=== PATIENT | female | born 1985 | race African-American/Black ===

== ENCOUNTER 2016-07-25 23:05 | Emergency (ER) | payer OTHER ==
[2016-07-25 23:28] LABS: MANUAL DIFF NEEDED? NO
[2016-07-25 23:32] LABS: BASO% 0.9 % (0.0-0.8); EOS# 0.07 X1000 (0.0-0.7); HEMATOCRIT 40.8 % (37.0-47.0); HEMOGLOBIN 13.8 g/dL (12.0-16.0); LYMPH# 2.53 X1000 (1.2-3.4); LYMPH% 37.1 % (20.5-51.1); MCHC 33.8 g/dL (33-37); MCV 88.7 FL (81-99); MONO# 0.45 X1000 (0.11-0.59); MONO% 6.6 % (1.7-9.3); MPV 11.1 FL (7.4-10.4); NEUT% 54.4 % (42.2-75.2); PLT 285 X1000 (130-400)
[2016-07-25] MEDS ORDERED: ATIVAN IM ONE (23:33)
[2016-07-25] MEDS ORDERED: GEODON IM ONE (23:33)
[2016-07-25] MEDS ORDERED: STERILE WATER INJ. INJ ONE (23:33)
[2016-07-25] MEDS ORDERED: ATIVAN ONE (23:35)
[2016-07-25] MEDS ORDERED: GEODON ONE (23:35)
[2016-07-25 23:49] LABS: URINE CULTURE NEEDED? NO; URINE MICRO REVIEW NEEDED? NO; URINE SOURCE CLEAN CATCH
[2016-07-26] LABS: AGAP 17; ALBUMIN 4.6 g/dL (3.5-5.0); ALKALINE PHOSPHATASE 92 U/L (32-104); BUN 9 mg/dL (8-22); CALCIUM 9.7 mg/dL (8.8-10.2); CHLORIDE 101 mmol/L (98-107); COSMO 278; GOT 18 U/L (10-30); GPT 13 U/L (10-36); SODIUM 140 mmol/L (136-145); TCO2 22 mmol/L (25-35); TOTAL BILIRUBIN 0.16 mg/dL (0.20-1.00); TOTAL PROTEIN 8.3 g/dL (6.3-8.3)
[2016-07-26 00:02] LABS: UR AMPHETAMINES QUAL NONE DETECTED (NONE DETECT); UR BARBITUATES QUAL NONE DETECTED (NONE DETECT); UR BENZODIAZEPIN QUAL NONE DETECTED (NONE DETECT); UR CANNABINOIDS QUAL NONE DETECTED (NONE DETECT); UR COCAINE QUAL NONE DETECTED (NONE DETECT); UR METHADONE QUAL NONE DETECTED (NONE DETECT); UR OPIATES QUAL NONE DETECTED (NONE DETECT); UR OXYCODONE QUAL NONE DETECTED (NONE DETECT); UR PCP QUAL NONE DETECTED (NONE DETECT)
[2016-07-26 00:14] LABS: FREE T4 1.19 ng/dL (0.93-1.70)
[2016-07-26 00:19] LABS: BILIRUBIN URINE NEGATIVE (NEGATIVE); BLOOD URINE NEGATIVE (NEGATIVE); COLOR YELLOW; GLUCOSE URINE NEGATIVE (NEGATIVE); LEUKOCYTES URINE NEGATIVE (NEGATIVE); NITRITE URINE NEGATIVE (NEGATIVE); PROTEIN URINE NEGATIVE (NEGATIVE); SP GRAVITY URINE 1.014; TURBIDITY URINE CLEAR (CLEAR); UR EPITHELIAL CELLS <10 /HPF (<10); URINE BACTERIA NEGATIVE /HPF; URINE RBC <10 /HPF (<10); URINE WBC <10 /HPF (<10); UROBILINOGEN URINE NORMAL (NORMAL)
--- NOTE | 2016-07-26 00:27 | ED EKG INTERP ---
EKG Interpretation - EKG Time of EKG reading by physician:: 00:14 EKG Read and Signed by:: Kavin Jackson EKG Interpretation (*Must complete 3 of following elements*): Abnormal (Septal infarct, age undetermined) Rate: 126 Rhythm: Sinus tachycardia Attestation - Scribe Verification/Attestation Scribe:: Wale Reyna Acting as Scribe for:: Kavin Jackson Scribcharmaine documention review:: This chart was documented by a scribe and accurately reflects the service the provider performed and the decisions made by the provider.
--- NOTE | 2016-07-26 07:37 | EKG Report ---
Test Performed on : 07/26/2016 00:14:43 AM Test Reason : psych Blood Pressure : / mmHG Vent. Rate : 126 BPM Atrial Rate : 126 BPM P-R Int : 158 ms QRS Dur : 088 ms QT Int : 320 ms P-R-T Axes : 060 042 022 degrees QTc Int : 463 ms Sinus tachycardia. Septal infarct , age undetermined Abnormal ECG When compared with ECG of 04-MAY-2012 22:29, T wave inversion now evident in Inferior leads Unconfirmed Result
[2016-07-26] MEDS ORDERED: TYLENOL PO ONE (12:14)
--- NOTE | 2016-07-26 17:56 | PROVIDER DOCUMENTATION ---
HPI-Psychological Disorder <Earnest Hernandez I - Last Filed: 07/26/16 17:53> - General Source: patient - History of Present Illness-Psych Onset/Duration: reports: just prior to arrival Timing: reports: still present Severity: reports: moderate Psychiatric Complaints: reports: altered mental status, anxiety, confused, hallucinating, impaired concentration, irritability. denies: depressed, frustrated, homicidal thoughts, suicidal ideation Substance Use: reports: alcohol, marijuana Patient arrived by:: private car - Suicidal Ideation Suicide Risk Assessment: drug or ETOH abuse, rational thought loss ( hallucinations). negative: organized plan, chronic illness, schizophrenia, bi- polar <Wale Reyna - Last Filed: 07/26/16 18:04> - General Chief Complaint: Psych Stated Complaint: SI Time Seen by Provider: 07/25/16 23:32 Allergies/Adverse Reactions: Patient Allergies Allergy/AdvReac Type Severity Reaction Status Date / Time No Known Allergies Allergy Verified 07/25/16 23:20 Home Medications: Home Medication List Medication Instructions Recorded Confirmed Last Taken Type No Home Medications 07/25/16 07/25/16 Unknown History - History of Present Illness-Psych Nature of Presenting Problem: Pt is a 31 yof who presents to ER with CC of AMS. Pt reports that she smoked an unspecified amount of marijuana and drank an unspecified quantity/type of alcohol and is now having auditory hallucinations. On exam, pt was anxious and mildly obtunded, but still cooperative. (Wale Reyna) Review of Systems - Adult - REVIEW OF SYSTEMS - ADULT Constitutional: denies: chills, fever, fatique, night sweats Eyes: reports: no symptoms reported Ears, Nose, Mouth & Throat: reports: no symptoms reported Cardiovascular: reports: no symptoms reported Respiratory: denies: chronic cough, cough, dyspnea on exertion, excessive sputum production, hemoptysis, pleurisy, shortness of breath, wheezing Gastrointestinal: reports: no symptoms reported Genitourinary: reports: no symptoms reported Musculoskeletal: reports: no symptoms reported Integumentary: reports: no symptoms reported Neurological: denies: ataxia, dizziness/vertigo, headache/migraines, loss of balance, numbness, paresthesia, seizure, slurred speech, syncope, tremors Psychiatric: reports: anxiety, alcohol/drug dependence, emotional problems. denies: anti-depressant use, depression, insomnia, panic attacks, suicidal thoughts Endocrine: reports: no symptoms reported Hematologic/Lymphatic: reports: no symptoms reported Allergic/Immunologic: reports: no symptoms reported All Other Systems: Reviewed and Negative <Wale Reyna - Last Filed: 07/26/16 18:04> Past History - Adult - PAST MEDICAL HISTORY-ADULT Major Childhood Illnesses: reports: denies history Cardiovascular: reports: denies history Respiratory: reports: denies history Gastrointestinal: reports: denies history Obstetrical/Gynecological: reports: denies history Genitourinary: reports: denies history Musculoskeletal: reports: denies history Neurological: reports: denies history Endocrine/Immune: reports: denies history Other Conditions: reports: denies history - PRIOR SURGERIES/PROCEDURES Surgical/Procedure History: reports: BTL - IMMUNIZATION STATUS Childhood Immunizations: See Nurse Assessment Flu Vaccine: See Nurse Assessment - FAMILY HISTORY Family History: reviewed, not pertinent <Earnest Hernandez I - Last Filed: 07/26/16 17:53> - PAST MEDICAL HISTORY-ADULT Review of Records: reports: Nursing Assessment Review, Medications Reviewed - IMMUNIZATION STATUS Childhood Immunizations: See Nurse Assessment Flu Vaccine: See Nurse Assessment <ReynaWale - Last Filed: 07/26/16 18:04> Physical Exam-Psych Focus - Physical Exam-Psych Initial Vital Signs Reviewed: Yes Appearance: appropriate appearance, appropriate insight, neat, alert, anxious, disheveled, impaired insight, moderate distress. negative: no apparent distress , no memory impairment, denies illness, combative, impaired recent memory, impaired remote memory, lethargic, mild distress, severe distress, slow to respond Neurological: alert, safety engineer pressure vessels II-XII nml as tested, oriented x 3, responds to pain, anxious. negative: normal mood/affect, calm, agitated, depressed affect, disoriented x 3, flat Behavior/Eye Contact/Speech: cooperative, good eye contact, increased rate of speech. negative: normal speech, avoids eye contact, refused to answer, threatening eye contact, decreased rate of speech, belligerent, compulsive, uncooperative Thoughts/Hallucinations: auditory hallucinations, flight of ideas. negative: normal thought pattern, no apparent hallucination, incoherent, paranoid, phobic , tactile hallucinations, visual hallucinations HENMT: normocephalic/atraumatic, moist mucous membranes, normal ENT inspection. negative: hearing deficit Neck: non-tender, full range of motion, supple. negative: limited range of motion, lymphadenopathy Respiratory: chest non-tender, lungs clear, normal breath sounds. negative: respiratory distress, decreased breath sounds, accessory muscle use, wheezing Cardiovascular: normal peripheral pulses, regular rate, rhythm. negative: bradycardia, tachycardia, extra beats, irregularly irregular Integumentary: normal color, normal turgor, warm/dry. negative: abrasion(s), diaphoresis, ecchymosis, erythema, laceration(s), swelling, tenderness, warm <Wale Reyna - Last Filed: 07/26/16 18:04> Progress <Earnest Hernandez I - Last Filed: 07/26/16 17:53> <Wale Reyna - Last Filed: 07/26/16 18:04> - PLAN OF CARE/RESULTS Progress/Plan/Lab Results: Vital Signs - 24 hr 07/25/16 07/26/16 07/26/16 23:17 07:07 16:50 Temperature 97.5 F L 98.6 F 98.6 F Pulse Rate 105 H 100 H 76 Respiratory 22 14 19 Rate Blood Pressure 139/97 115/67 131/82 O2 Sat by Pulse 97 100 100 Oximetry Orders Category Date Time Status Regular Diet Diet 07/26/16 07:48 Completed Regular Diet Diet 07/26/16 14:35 Active ACETAMINOPHEN [TDM] Stat Lab 07/25/16 23:15 Completed ALCOHOL BLOOD Stat Lab 07/25/16 23:15 Completed ALCOHOL BLOOD Stat Lab 07/26/16 04:15 Completed CBC WITH ELECTRONIC DIFF [HEME] Stat Lab 07/25/16 23:15 Completed COMPREHENSIVE METABOLIC PANEL [CHEM] Stat Lab 07/25/16 23:15 Completed ETOH [ALCOHOL BLOOD] Stat Lab 07/26/16 13:35 Completed FREE T4 Stat Lab 07/25/16 23:15 Completed TEST-URINE [PREG] Stat Lab 07/25/16 23:37 Completed SALICYLATES [TDM] Stat Lab 07/25/16 23:15 Completed TSH Stat Lab 07/25/16 23:15 Completed URINALYSIS W/POSS RFLX CULT [URINALYSIS] Stat Lab 07/25/16 23:37 Completed URINE DRUG SCREEN Stat Lab 07/25/16 23:37 Completed VITAMIN B12 Stat Lab 07/25/16 23:15 Completed Acetaminophen [Tylenol] Med 07/26/16 12:14 Discontinued 1,000 mg PO NOW ONE Lorazepam [Ativan] Med 07/25/16 23:35 Discontinued 2 mg .ROUTE .STK-MED ONE Lorazepam [Ativan] Med 07/25/16 23:33 Discontinued 2 mg IM NOW ONE Water, Sterile Inj [Sterile Water Inj] Med 07/25/16 23:33 Discontinued 1.2 ml INJ NOW ONE Ziprasidone [Geodon] Med 07/25/16 23:35 Discontinued 20 mg .ROUTE .STK-MED ONE Ziprasidone [Geodon] Med 07/25/16 23:33 Discontinued 20 mg IM NOW ONE EKG [EKG] Stat Ther 07/25/16 23:51 Draft Laboratory Tests 07/25/16 07/25/16 07/25/16 23:15 23:15 23:15 WBC RBC Hgb Hct MCV MCH MCHC RDW Std Deviation Plt Count MPV Immature Gran % (Auto) Neut % (Auto) Lymph % (Auto) [place] % (Auto) Eos % (Auto) Baso % (Auto) Immature Gran # (Auto) Neut # (Auto) Lymph # (Auto) [place] # (Auto) Eos # (Auto) Baso # (Auto) Sodium 140 Potassium 4.0 Chloride 101 Carbon Dioxide 22 L Anion Gap 17 BUN 9 Creatinine 0.8 Estimated GFR/1.73 m2 > 60 BUN/Creatinine Ratio 11 Glucose 99 Calculated Osmolality 278 Calcium 9.7 Total Bilirubin 0.16 L AST 18 ALT 13 Alkaline Phosphatase 92 Total Protein 8.3 Albumin 4.6 Globulin 3.7 Albumin/Globulin Ratio 1.2 Vitamin B12 558 TSH 1.91 Free T4 1.19 Urine Source Urine Color Urine Turbidity Urine pH Ur Specific [place] Urine Protein Ur Glucose (Stick) Ur Ketones (Stick) Urine Blood Urine Nitrite Urine Bilirubin Urobilinogen Dipstick Urine Leukocytes Urine WBC (Auto) Urine RBC (Auto) U Epithel Cells (Auto) Urine Bacteria (Auto) Urine Test Salicylates Urine Opiates Screen Ur Oxycodone Screen Ur Methadone, Qual Acetaminophen Ur Barbiturates Screen Ur Phencyclidine Scrn Ur Amphetamines Screen U Benzodiazepines Scrn Urine Cocaine Screen U Cannabinoids Screen Plasma/Serum Ethyl Alc 180 H 07/25/16 07/25/16 07/25/16 23:15 23:15 23:15 WBC 6.82 RBC 4.60 Hgb 13.8 Hct 40.8 MCV 88.7 MCH 30.0 MCHC 33.8 RDW Std Deviation 12.9 Plt Count 285 MPV 11.1 H Immature Gran % (Auto) 0.0 Neut % (Auto) 54.4 Lymph % (Auto) 37.1 [place] % (Auto) 6.6 Eos % (Auto) 1.0 Baso % (Auto) 0.9 H Immature Gran # (Auto) 0.00 Neut # (Auto) 3.71 Lymph # (Auto) 2.53 [place] # (Auto) 0.45 Eos # (Auto) 0.07 Baso # (Auto) 0.06 Sodium Potassium Chloride Carbon Dioxide Anion Gap BUN Creatinine Estimated GFR/1.73 m2 BUN/Creatinine Ratio Glucose Calculated Osmolality Calcium Total Bilirubin AST ALT Alkaline Phosphatase Total Protein Albumin Globulin Albumin/Globulin Ratio Vitamin B12 TSH Free T4 Urine Source Urine Color Urine Turbidity Urine pH Ur Specific [place] Urine Protein Ur Glucose (Stick) Ur Ketones (Stick) Urine Blood Urine Nitrite Urine Bilirubin Urobilinogen Dipstick Urine Leukocytes Urine WBC (Auto) Urine RBC (Auto) U Epithel Cells (Auto) Urine Bacteria (Auto) Urine Test Salicylates < 3.00 L Urine Opiates Screen Ur Oxycodone Screen Ur Methadone, Qual Acetaminophen < 1.2 L Ur Barbiturates Screen Ur Phencyclidine Scrn Ur Amphetamines Screen U Benzodiazepines Scrn Urine Cocaine Screen U Cannabinoids Screen Plasma/Serum Ethyl Alc 07/25/16 07/25/16 07/25/16 23:37 23:37 23:37 WBC RBC Hgb Hct MCV MCH MCHC RDW Std Deviation Plt Count MPV Immature Gran % (Auto) Neut % (Auto) Lymph % (Auto) [place] % (Auto) Eos % (Auto) Baso % (Auto) Immature Gran # (Auto) Neut # (Auto) Lymph # (Auto) [place] # (Auto) Eos # (Auto) Baso # (Auto) Sodium Potassium Chloride Carbon Dioxide Anion Gap BUN Creatinine Estimated GFR/1.73 m2 BUN/Creatinine Ratio Glucose Calculated Osmolality Calcium Total Bilirubin AST ALT Alkaline Phosphatase Total Protein Albumin Globulin Albumin/Globulin Ratio Vitamin B12 TSH Free T4 Urine Source CLEAN CATCH Urine Color YELLOW Urine Turbidity CLEAR Urine pH 6.0 Ur Specific [place] 1.014 Urine Protein NEGATIVE Ur Glucose (Stick) NEGATIVE Ur Ketones (Stick) NEGATIVE Urine Blood NEGATIVE Urine Nitrite NEGATIVE Urine Bilirubin NEGATIVE Urobilinogen Dipstick NORMAL Urine Leukocytes NEGATIVE Urine WBC (Auto) <10 Urine RBC (Auto) <10 U Epithel Cells (Auto) <10 Urine Bacteria (Auto) NEGATIVE Urine Test NEGATIVE Salicylates Urine Opiates Screen NONE DETECTED Ur Oxycodone Screen NONE DETECTED Ur Methadone, Qual NONE DETECTED Acetaminophen Ur Barbiturates Screen NONE DETECTED Ur Phencyclidine Scrn NONE DETECTED Ur Amphetamines Screen NONE DETECTED U Benzodiazepines Scrn NONE DETECTED Urine Cocaine Screen NONE DETECTED U Cannabinoids Screen NONE DETECTED Plasma/Serum Ethyl Alc 07/26/16 07/26/16 04:15 13:35 WBC RBC Hgb Hct MCV MCH MCHC RDW Std Deviation Plt Count MPV Immature Gran % (Auto) Neut % (Auto) Lymph % (Auto) [place] % (Auto) Eos % (Auto) Baso % (Auto) Immature Gran # (Auto) Neut # (Auto) Lymph # (Auto) [place] # (Auto) Eos # (Auto) Baso # (Auto) Sodium Potassium Chloride Carbon Dioxide Anion Gap BUN Creatinine Estimated GFR/1.73 m2 BUN/Creatinine Ratio Glucose Calculated Osmolality Calcium Total Bilirubin AST ALT Alkaline Phosphatase Total Protein Albumin Globulin Albumin/Globulin Ratio Vitamin B12 TSH Free T4 Urine Source Urine Color Urine Turbidity Urine pH Ur Specific [place] Urine Protein Ur Glucose (Stick) Ur Ketones (Stick) Urine Blood Urine Nitrite Urine Bilirubin Urobilinogen Dipstick Urine Leukocytes Urine WBC (Auto) Urine RBC (Auto) U Epithel Cells (Auto) Urine Bacteria (Auto) Urine Test Salicylates Urine Opiates Screen Ur Oxycodone Screen Ur Methadone, Qual Acetaminophen Ur Barbiturates Screen Ur Phencyclidine Scrn Ur Amphetamines Screen U Benzodiazepines Scrn Urine Cocaine Screen U Cannabinoids Screen Plasma/Serum Ethyl Alc 182 H 20 H (Wale Reyna) Departure - Departure Time of Disposition Order: 17:54 Certified Medical Emergency: Emergent (Patient evaluated by behavioral health, and has signed a consent. Will be discharged home.) <Earnest Hernandez I - Last Filed: 07/26/16 17:53> - Departure Time of Disposition Order: 18:03 Certified Medical Emergency: Emergent <Wale Reyna - Last Filed: 07/26/16 18:04> - Departure DIAGNOSIS: Alcohol intoxication Qualifiers: Complication of substance-induced condition: with unspecified complication Qualified Code(s): F10.129 - Alcohol abuse with intoxication, unspecified Disposition: HOME 01 Condition: Stable Referrals: None,PCP [Primary Care Provider] - Attestation - Scribe Verification/Attestation Scribe:: Wale Reyna Acting as Scribe for:: Earnest Hernandez Scribe documention review:: This chart was documented by a scribe and accurately reflects the service the provider performed and the decisions made by the provider. <Wale Reyna - Last Filed: 07/26/16 18:04> Physician Attestation - Physician Attestation I, the provider, attest to the following statement:: Earnest Hernandez Physician documentation Attestation:: This documentation recorded by the scribe accurately reflects the service I personally performed and the decisions made by me. <Earnest Hernandez I - Last Filed: 07/26/16 17:53>
[2016-07-26 18:37] VITALS: BP 130/76
== END 2016-07-26 18:30 | disposition home or self-care (01) ==
LOC: ED 23:05
DX: F10.129 Alcohol abuse with intoxication, unspecified (principal); R94.31 Abnormal electrocardiogram [ECG] [EKG]; R41.82 Altered mental status, unspecified; R41.0 Disorientation, unspecified; R44.0 Auditory hallucinations
CPT/HCPCS: 80053; 81001; 81025; 82607; 84439; 84443; 85025; 93005; G0480; J2060; J3486; 80320; 80324; 80329; 80345; 80346; 80349; 80353; 80358; 80361; 80365; 83992

== ENCOUNTER 2016-07-29 20:19 | Emergency (ER) | payer OTHER ==
[2016-07-29] MEDS ORDERED: GEODON IM ONE (20:22)
[2016-07-29] MEDS ORDERED: GEODON ONE (20:22)
[2016-07-29] MEDS ORDERED: STERILE WATER INJ. ONE (20:22)
[2016-07-29] MEDS ORDERED: ATIVAN IM ONE (20:22)
[2016-07-29] MEDS ORDERED: STERILE WATER INJ. INJ ONE (20:22)
[2016-07-29 21:26] LABS: MANUAL DIFF NEEDED? NO
[2016-07-29 21:26] LABS: URINE CULTURE NEEDED? NO; URINE MICRO REVIEW NEEDED? NO; URINE SOURCE CATH
[2016-07-29 21:30] LABS: BASO% 0.5 % (0.0-0.8); EOS# 0.27 X1000 (0.0-0.7); EOS% 3.4 % (0.0-10.0); HEMATOCRIT 37.8 % (37.0-47.0); HEMOGLOBIN 12.5 g/dL (12.0-16.0); LYMPH# 2.69 X1000 (1.2-3.4); LYMPH% 34.1 % (20.5-51.1); MCH 29.6 PG (27-31); MCHC 33.1 g/dL (33-37); MCV 89.4 FL (81-99); MONO# 0.51 X1000 (0.11-0.59); MONO% 6.5 % (1.7-9.3); MPV 11.1 FL (7.4-10.4); NEUT% 55.5 % (42.2-75.2); PLT 262 X1000 (130-400); RBC 4.23 XMIL (4.2-5.4)
[2016-07-29 21:36] LABS: BILIRUBIN URINE NEGATIVE (NEGATIVE); BLOOD URINE NEGATIVE (NEGATIVE); COLOR STRAW; GLUCOSE URINE NEGATIVE (NEGATIVE); LEUKOCYTES URINE NEGATIVE (NEGATIVE); NITRITE URINE NEGATIVE (NEGATIVE); PH URINE 5.5; PROTEIN URINE NEGATIVE (NEGATIVE); SP GRAVITY URINE 1.006; TURBIDITY URINE CLEAR (CLEAR); UROBILINOGEN URINE NORMAL (NORMAL)
[2016-07-29 21:39] LABS: UR EPITHELIAL CELLS <10 /HPF (<10); URINE BACTERIA NEGATIVE /HPF; URINE RBC <10 /HPF (<10); URINE WBC <10 /HPF (<10)
[2016-07-29 22:06] LABS: UR AMPHETAMINES QUAL NONE DETECTED (NONE DETECT); UR BARBITUATES QUAL NONE DETECTED (NONE DETECT); UR BENZODIAZEPIN QUAL NONE DETECTED (NONE DETECT); UR CANNABINOIDS QUAL NONE DETECTED (NONE DETECT); UR COCAINE QUAL PRESUMPTIVE POSITIVE (NONE DETECT); UR METHADONE QUAL NONE DETECTED (NONE DETECT); UR OPIATES QUAL NONE DETECTED (NONE DETECT); UR OXYCODONE QUAL NONE DETECTED (NONE DETECT); UR PCP QUAL NONE DETECTED (NONE DETECT)
[2016-07-29 22:13] LABS: AGAP 20; ALBUMIN 4.3 g/dL (3.5-5.0); ALKALINE PHOSPHATASE 96 U/L (32-104); BUN 10 mg/dL (8-22); CALCIUM 9.3 mg/dL (8.8-10.2); CHLORIDE 104 mmol/L (98-107); COSMO 287; GOT 20 U/L (10-30); GPT 15 U/L (10-36); POTASSIUM 4.1 mmol/L (3.5-5.1); SODIUM 145 mmol/L (136-145); TCO2 21 mmol/L (25-35); TOTAL BILIRUBIN 0.14 mg/dL (0.20-1.00); TOTAL PROTEIN 7.2 g/dL (6.3-8.3)
[2016-07-29 22:40] LABS: FREE T4 1.16 ng/dL (0.93-1.70)
--- NOTE | 2016-07-30 07:14 | PROVIDER DOCUMENTATION ---
[id number] Abuse/Overdose - General Source: EMS Unable to obtain history due to:: altered - History of Present Illness-Drug/Alcohol This episode of drinking or use began:: unsure Severity: reports: severe (unknown) Situational problems related to:: reports: other Psychiatric Complaints: reports: hostile, suicidal ideation Any injuries associated with this episode of intoxication?: No Similar Symptoms Previously?: Yes Recently seen or treated by another doctor?: No - Substance Abuse Substance Use: reports: amphetamines <Tyrone Alvarenga - Last Filed: 07/30/16 07:15> <Lita Lopez - Last Filed: 07/30/16 12:58> - General Chief Complaint: Psych Stated Complaint: ETOH Time Seen by Provider: 07/29/16 20:22 Allergies/Adverse Reactions: Allergies Allergy/AdvReac Type Severity Reaction Status Date / Time No Known Allergies Allergy Verified 07/25/16 23:20 Home Medications: Home Medication List Medication Instructions Recorded Confirmed Last Taken Type Home Meds Unobtainable 07/29/16 07/29/16 Unknown History - History of Present Illness-Drug/Alcohol Nature of Presenting Problem: Patient arrived by EMS and police obviously intoxicated (etoh) and having consumed an "8 ball" of cocaine. She was very combative and fighting police until given 20 mg of Geodon IM and Ativan 2 mg IM. (Tyrone Alvarenga) Review of Systems - Adult - REVIEW OF SYSTEMS - ADULT ROS:: unobtainable per condition Constitutional: reports: see HPI <Tyrone Alvarenga - Last Filed: 07/30/16 07:15> Past History - Adult - PAST MEDICAL HISTORY-ADULT Review of Records: reports: Old Records Reviewed, Nursing Assessment Review Major Childhood Illnesses: reports: denies history Cardiovascular: reports: denies history Respiratory: reports: denies history Gastrointestinal: reports: denies history Obstetrical/Gynecological: reports: denies history Genitourinary: reports: denies history Musculoskeletal: reports: denies history Neurological: reports: denies history Endocrine/Immune: reports: denies history Other Conditions: reports: denies history - PRIOR SURGERIES/PROCEDURES Surgical/Procedure History: reports: BTL - IMMUNIZATION STATUS Childhood Immunizations: See Nurse Assessment Flu Vaccine: See Nurse Assessment - FAMILY HISTORY Family History: reviewed, not pertinent <Tyrone Alvarenga - Last Filed: 07/30/16 07:15> Physical Exam-General - PHYSICAL EXAM-ADULT Initial Vital Signs Reviewed: Yes - CONSTITUTIONAL General Appearance: combative - EYES Eyes: PERRL/EOMI - HEAD, EARS, NOSE, MOUTH & THROAT HENMT: normocephalic/atraumatic - RESPIRATORY Respiratory: chest non-tender - CARDIOVASCULAR Cardiovascular: normal peripheral pulses, regular rate, rhythm - CHEST (BREASTS) Chest/Breast: deferred - GASTROINTESTINAL (ABDOMEN) Abdominal Exam: normal bowel sounds, non tender - GENITOURINARY Female Genitalia/Pelvic Exam: deferred - MUSCULOSKELETAL Back Exam: normal inspection, no CVA tenderness Extremity: normal range of motion, non-tender Peripheral Pulses: radial (R): 3+, radial (L): 3+ DTR: bicep (R): 3+, bicep (L): 3+ - SKIN Integumentary: normal color, normal turgor, warm/dry - NEUROLOGIC Neurologic: grossly normal - PSYCHIATRIC Psych/Mental Status: other (lethargic post Geodon) <Tyrone Alvarenga - Last Filed: 07/30/16 07:15> Progress - CHANGE OF SHIFT REPORT (ED Provider) Report Given and Care Transferred to:: Dr Morris Items Pending: Labs Tentative Impression of Patient: Alcohol and drug abuse <Tyrone Alvarenga - Last Filed: 07/30/16 07:15> <Lita Lopez - Last Filed: 07/30/16 12:58> - PLAN OF CARE/RESULTS Progress/Plan/Lab Results: Laboratory Tests 07/29/16 07/29/16 07/29/16 20:40 20:40 20:40 WBC 7.90 RBC 4.23 Hgb 12.5 Hct 37.8 MCV 89.4 MCH 29.6 MCHC 33.1 RDW Std Deviation 12.7 Plt Count 262 MPV 11.1 H Immature Gran % (Auto) 0.0 Neut % (Auto) 55.5 Lymph % (Auto) 34.1 [place] % (Auto) 6.5 Eos % (Auto) 3.4 Baso % (Auto) 0.5 Immature Gran # (Auto) 0.00 Neut # (Auto) 4.39 Lymph # (Auto) 2.69 [place] # (Auto) 0.51 Eos # (Auto) 0.27 Baso # (Auto) 0.04 Sodium 145 Potassium 4.1 Chloride 104 Carbon Dioxide 21 L Anion Gap 20 BUN 10 Creatinine 0.8 Estimated GFR/1.73 m2 > 60 BUN/Creatinine Ratio 13 Glucose 91 Calculated Osmolality 287 Calcium 9.3 Total Bilirubin 0.14 L AST 20 ALT 15 Alkaline Phosphatase 96 Total Protein 7.2 Albumin 4.3 Globulin 2.9 Albumin/Globulin Ratio 1.5 Vitamin B12 TSH Free T4 Urine Source Urine Color Urine Turbidity Urine pH Ur Specific [place] Urine Protein Ur Glucose (Stick) Ur Ketones (Stick) Urine Blood Urine Nitrite Urine Bilirubin Urobilinogen Dipstick Urine Leukocytes Urine WBC (Auto) Urine RBC (Auto) U Epithel Cells (Auto) Urine Bacteria (Auto) Urine Opiates Screen Ur Oxycodone Screen Ur Methadone, Qual Ur Barbiturates Screen Ur Phencyclidine Scrn Ur Amphetamines Screen U Benzodiazepines Scrn Urine Cocaine Screen U Cannabinoids Screen Plasma/Serum Ethyl Alc 293 H 07/29/16 07/29/16 07/29/16 20:40 20:52 20:52 WBC RBC Hgb Hct MCV MCH MCHC RDW Std Deviation Plt Count MPV Immature Gran % (Auto) Neut % (Auto) Lymph % (Auto) [place] % (Auto) Eos % (Auto) Baso % (Auto) Immature Gran # (Auto) Neut # (Auto) Lymph # (Auto) [place] # (Auto) Eos # (Auto) Baso # (Auto) Sodium Potassium Chloride Carbon Dioxide Anion Gap BUN Creatinine Estimated GFR/1.73 m2 BUN/Creatinine Ratio Glucose Calculated Osmolality Calcium Total Bilirubin AST ALT Alkaline Phosphatase Total Protein Albumin Globulin Albumin/Globulin Ratio Vitamin B12 427 TSH 1.40 Free T4 1.16 Urine Source CATH Urine Color STRAW Urine Turbidity CLEAR Urine pH 5.5 Ur Specific [place] 1.006 Urine Protein NEGATIVE Ur Glucose (Stick) NEGATIVE Ur Ketones (Stick) NEGATIVE Urine Blood NEGATIVE Urine Nitrite NEGATIVE Urine Bilirubin NEGATIVE Urobilinogen Dipstick NORMAL Urine Leukocytes NEGATIVE Urine WBC (Auto) <10 Urine RBC (Auto) <10 U Epithel Cells (Auto) <10 Urine Bacteria (Auto) NEGATIVE Urine Opiates Screen NONE DETECTED Ur Oxycodone Screen NONE DETECTED Ur Methadone, Qual NONE DETECTED Ur Barbiturates Screen NONE DETECTED Ur Phencyclidine Scrn NONE DETECTED Ur Amphetamines Screen NONE DETECTED U Benzodiazepines Scrn NONE DETECTED Urine Cocaine Screen PRESUMPTIVE POSITIVE A U Cannabinoids Screen NONE DETECTED Plasma/Serum Ethyl Alc 07/30/16 05:33 WBC RBC Hgb Hct MCV MCH MCHC RDW Std Deviation Plt Count MPV Immature Gran % (Auto) Neut % (Auto) Lymph % (Auto) [place] % (Auto) Eos % (Auto) Baso % (Auto) Immature Gran # (Auto) Neut # (Auto) Lymph # (Auto) [place] # (Auto) Eos # (Auto) Baso # (Auto) Sodium Potassium Chloride Carbon Dioxide Anion Gap BUN Creatinine Estimated GFR/1.73 m2 BUN/Creatinine Ratio Glucose Calculated Osmolality Calcium Total Bilirubin AST ALT Alkaline Phosphatase Total Protein Albumin Globulin Albumin/Globulin Ratio Vitamin B12 TSH Free T4 Urine Source Urine Color Urine Turbidity Urine pH Ur Specific [place] Urine Protein Ur Glucose (Stick) Ur Ketones (Stick) Urine Blood Urine Nitrite Urine Bilirubin Urobilinogen Dipstick Urine Leukocytes Urine WBC (Auto) Urine RBC (Auto) U Epithel Cells (Auto) Urine Bacteria (Auto) Urine Opiates Screen Ur Oxycodone Screen Ur Methadone, Qual Ur Barbiturates Screen Ur Phencyclidine Scrn Ur Amphetamines Screen U Benzodiazepines Scrn Urine Cocaine Screen U Cannabinoids Screen Plasma/Serum Ethyl Alc 138 H Orders Category Date Time Status Restraint/Seclude Init/Renew V NOW Care 07/29/16 21:56 Active ALCOHOL BLOOD Stat Lab 07/29/16 20:40 Completed ALCOHOL BLOOD Stat Lab 07/30/16 05:33 Completed CBC WITH ELECTRONIC DIFF [HEME] Stat Lab 07/29/16 20:40 Completed COMPREHENSIVE METABOLIC PANEL [CHEM] Stat Lab 07/29/16 20:40 Completed FREE T4 Stat Lab 07/29/16 20:40 Completed TSH Stat Lab 07/29/16 20:40 Completed URINALYSIS W/POSS RFLX CULT [URINALYSIS] Stat Lab 07/29/16 20:52 Completed URINE DRUG SCREEN Stat Lab 07/29/16 20:52 Completed VITAMIN B12 Stat Lab 07/29/16 20:40 Completed Lorazepam [Ativan] Med 07/29/16 20:22 Discontinued 2 mg IM NOW ONE Water, Sterile Inj [Sterile Water Inj] Med 07/29/16 20:22 Discontinued 1.2 ml INJ NOW ONE Water, Sterile Inj [Sterile Water Inj] Med 07/29/16 20:22 Discontinued 10 ml .ROUTE .STK-MED ONE Ziprasidone [Geodon] Med 07/29/16 20:22 Discontinued 20 mg .ROUTE .STK-MED ONE Ziprasidone [Geodon] Med 07/29/16 20:22 Discontinued 20 mg IM NOW ONE (Tyrone Alvarenga) PT WILL BE TRANSFERRED TO PSYCH FACILITY (Lita Lopez) Departure <Tyrone Alvarenga - Last Filed: 07/30/16 07:15> - Departure Time of Disposition Order: 11:50 Certified Medical Emergency: Emergent <Lita Lopez - Last Filed: 07/30/16 12:58> - Departure DIAGNOSIS: Suicidal ideation, Psychosis Disposition: INTERMEDIATE CARE/ASSISTLIVIN4 Condition: Stable Referrals: None,PCP [Primary Care Provider] - Attestation - Scribe Verification/Attestation Scribe:: Lita Lopez Scribe documention review:: This chart was documented by a scribe and accurately reflects the service the provider performed and the decisions made by the provider. <Lita Lopez - Last Filed: 07/30/16 12:58> Physician Attestation
[2016-07-30 16:28] VITALS: BP 132/69
== END 2016-07-30 16:34 ==
LOC: ED 20:19
DX: R45.851 Suicidal ideations (principal); F29 Unspecified psychosis not due to a substance or known physiological condition; R45.5 Hostility; R53.83 Other fatigue
CPT/HCPCS: 80053; 81001; 82607; 84439; 84443; 85025; G0480; J2060; J3486; 80320; 80324; 80345; 80346; 80349; 80353; 80358; 80361; 80365; 83992

== ENCOUNTER 2016-08-13 23:18 | Emergency (ER) | payer OTHER ==
[2016-08-13 23:21] VITALS: BP 152/80
[2016-08-13] MEDS ORDERED: M.V.I.-12 10 ML, FOLIC ACID 1 MG, MAGNESIUM SULFATE 1 GM, THIAMINE 100 MG in NS 1,000 ML IV ONE (23:21)
[2016-08-13] MEDS ORDERED: SODIUM CHLORIDE 0.9% INJ ONE (23:21)
[2016-08-13] MEDS ORDERED: ZOFRAN IV ONE (23:21)
[2016-08-13] MEDS ORDERED: PROTONIX IV ONE (23:21)
== END 2016-08-13 23:25 | disposition left against medical advice (07) ==
LOC: ED 23:18
DX: Z00.8 Encounter for other general examination (principal); Z53.21 Procedure and treatment not carried out due to patient leaving prior to being seen by health care provider
CPT/HCPCS: J3411; J3475; J7030